=== PATIENT | male | born 1975 | race Two or more races ===

== ENCOUNTER 2019-11-02 11:37 | Day surgery (SDC) | payer OTHER ==
[~2019-11-02] VITALS: Ht 182.9 cm; Wt 77.0 kg
[2019-11-02] MEDS ORDERED: LACTATED RINGERS 1,000 ML IV SCH (11:55)
[2019-11-02 11:57] VITALS: BP 125/82
[2019-11-02] MEDS ORDERED: GABAPENTIN 300 MG CAPSULE PO ONE (12:00)
[2019-11-02] MEDS ORDERED: no current meds (12:00)
[2019-11-02] MEDS ORDERED: ACETAMINOPHEN 500 MG TABLET PO ONE (12:00)
[2019-11-02] MEDS ORDERED: PLEASE ENTER HEIGHT AND WEIGHT MC SCH (12:00)
[2019-11-02] MEDS ORDERED: PLEASE ENTER ALLERGIES MC SCH (12:00)
[2019-11-02] MEDS ORDERED: GABAPENTIN 300 MG CAPSULE ONE (12:25)
[2019-11-02] MEDS ORDERED: ACETAMINOPHEN 500 MG TABLET ONE (12:25)
[2019-11-02] MEDS ORDERED: FENTANYL PF 250 MCG/5ML ONE (13:23)
[2019-11-02] MEDS ORDERED: MIDAZOLAM 1 MG/ML, 2ML ONE (13:23)
[2019-11-02] MEDS ORDERED: ROCURONIUM 10MG/ML,5ML ONE (13:25)
[2019-11-02] MEDS ORDERED: CEFOTETAN PMX 2GM/50ML 50 ML ONE (13:25)
[2019-11-02] MEDS ORDERED: GLYCOPYRROLATE 0.2MG/1ML, 5ML ONE (13:25)
[2019-11-02] MEDS ORDERED: NEOSTIGMINE 1 MG/ML, 10ML ONE (13:25)
[2019-11-02] MEDS ORDERED: PROPOFOL 10 MG/ML, 20ML ONE (13:25)
[2019-11-02] MEDS ORDERED: CEFAZOLIN 1,000 MG ONE (13:25)
[2019-11-02] MEDS ORDERED: BUPIVACAINE/PF 0.5% ONE (13:31)
[2019-11-02] MEDS ORDERED: EPINEPHRINE 1 MG/ML, 1ML ONE (13:31)
[2019-11-02] MEDS ORDERED: OXYcodone 5 MG/5 ML ORAL.SOL UDC PO PRN (14:00)
[2019-11-02] MEDS ORDERED: hydrALAzine 20 MG/ML, 1ML IV PRN (14:00)
[2019-11-02] MEDS ORDERED: LABETALOL 5MG/ML, 20ML IV PRN (14:00)
[2019-11-02] MEDS ORDERED: MEPERIDINE/PF 25MG/ML,1ML IVPush PRN (14:00)
[2019-11-02] MEDS ORDERED: MORPHINE SULFATE 4 MG/ML, 1ML IVPush PRN (14:00)
[2019-11-02] MEDS ORDERED: ONDANSETRON 2MG/ML, 2ML IV PRN (14:00)
[2019-11-02] MEDS ORDERED: HYDROmorphone 2 MG/ML, 1ML IVPush PRN (14:00)
[2019-11-02] MEDS ORDERED: OXYcodone 5 MG/5 ML ORAL.SOL UDC ONE (15:34)
[2019-11-02] MEDS ORDERED: FENTANYL PF 100 MCG/2ML ONE (15:34)
[2019-11-02] MEDS: FENTANYL PF 100 MCG/2ML IV PRN ×3 (15:36→15:46)
== END 2019-11-02 17:25 | disposition home or self-care (01) ==
LOC: OUT 11:37
PROVIDERS: ATTEND Surgery
DX: K80.00 Calculus of gallbladder with acute cholecystitis without obstruction (principal); K82.8 Other specified diseases of gallbladder; F17.210 Nicotine dependence, cigarettes, uncomplicated
CPT/HCPCS: 47562; 88304; J0171; J2250; J2704; J2710; J3010; J3490; J7120; J0690